=== PATIENT | male | born 1965 | race Caucasian/White ===

== ENCOUNTER 2018-04-19 02:42 | Emergency (ER) | payer OTHER ==
[~2018-04-19] VITALS: Ht 165.1 cm; Wt 77.1 kg
[2018-04-19] MEDS ORDERED: METFORMIN HCL500 MG (02:52)
[2018-04-19] MEDS ORDERED: GLUCOTROL10 MG (02:52)
[2018-04-19] MEDS ORDERED: COZAAR50 MG (02:53)
[2018-04-19] MEDS ORDERED: ECOTRIN81 MG (02:53)
[2018-04-19] MEDS ORDERED: SIMVASTATIN10 MG (02:53)
[2018-04-19] MEDS ORDERED: KETO10TA2 PO (11:35)
[2018-04-19] MEDS ORDERED: CIPRO500 MG PO (11:35)
== END 2018-04-19 15:16 | disposition home or self-care (01) ==
LOC: ER 02:42
DX: N21.0 Calculus in bladder (principal); K57.90 Diverticulosis of intestine, part unspecified, without perforation or abscess without bleeding

== ENCOUNTER 2018-10-11 16:12 | Emergency (ER) | payer OTHER ==
[~2018-10-11] VITALS: Ht 167.6 cm; Wt 70.3 kg
[~2018-10-11 16:12] MED LIST: CIPRO500 MG PO; COZAAR50 MG; ECOTRIN81 MG; GLUCOTROL10 MG; KETO10TA2 PO; METFORMIN HCL500 MG; SIMVASTATIN10 MG
== END 2018-10-11 20:29 | disposition home or self-care (01) ==
LOC: ER 16:12
DX: S60.032A Contusion of left middle finger without damage to nail, initial encounter (principal); L03.012 Cellulitis of left finger; W22.8XXA Striking against or struck by other objects, initial encounter; Y93.89 Activity, other specified; Y92.89 Other specified places as the place of occurrence of the external cause; Y99.8 Other external cause status